=== PATIENT | male | born 1970 | race Caucasian/White ===

== ENCOUNTER 2021-09-07 21:02 | Emergency (ER) | payer MEDICARE, OTHER ==
[~2021-09-07] VITALS: Ht 167.6 cm; Wt 85.2 kg
--- NOTE | 2021-09-07 21:19 | PHYS DOC ---
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 States that about 6 out of 10 at its worst, sharp in nature associated with a cough and small amounts of mucus. Denies any fevers, rash, neck pain, dyspnea on exertion, orthopnea, PND or edema, abdominal pain, vomiting, diarrhea, dysuria, hematuria or blood in the stool. Denies any known ill contacts. States he is here visiting from [place] and drove here. Review of Systems Review of Systems Review of systems otherwise unremarkable except noted in HPI Physical Exam Physical Exam Constitutional: Well developed, well nourished, no acute distress, non-toxic appearance. [] HENT: Normocephalic, atraumatic, bilateral external ears normal, oropharynx moist, no oral exudates, nose normal. [] Eyes: conjunctiva normal, no discharge. [] Neck: Normal range of motion, no tenderness, supple, no stridor. [] Cardiovascular:Heart rate regular rhythm, no murmur. POC ultrasound with no pericardial effusion, grossly normal ejection fraction and grossly normal left and right ventricular sizes with grossly normal valve function, inferior vena cava appears slightly under distended and collapses on respirations [] Lungs & Thorax: Mild bilateral upper respiratory congestion and nasal congestion Abdomen: soft, no tenderness, no masses, no pulsatile masses. [] Skin: Warm, dry, no erythema, no rash, capillary refill about 5 seconds. [] Back: No tenderness, no CVA tenderness. [] Extremities: No tenderness, no cyanosis, no clubbing, ROM intact, no edema. [] Neurologic: Alert and oriented X 3, normal motor function, normal sensory function, no focal deficits noted. [] Psychologic: Affect normal, judgement normal, mood normal. [] EKG EKG [] Radiology/Procedures Radiology/Procedures [] Heart Score C/O Chest Pain: Yes HEART Score for Chest Pain: HEART Score for Chest Pain Response (Comments) Value History Slighlty/Non-Suspicious 0 ECG Nonspecific Repolarizatio 1 Age >45 - < 65 1 Risk Factors 1 or 2 Risk Factors 1 Troponin < Normal Limit 0 Total 3 Risk Factors: Risk Factors: DM, Current or recent (<one month) smoker, HTN, HLP, family history of CAD, obesity. Risk Scores: Risk Factors: DM, Current or recent (<one month) smoker, HTN, HLP, family history of CAD, obesity. Course & Med Decision Making Course & Med Decision Making Patient is a 51-year-old male who presents with pleuritic chest pain with cough, and nasal congestion Vital signs notable for tachypnea. Physical exam noted above. EKG with a rate of 74, QRS of 126, QTc of 440, no STEMI. Troponin not concerning x2. Low risk Wells. Dimer normal. Chest x-ray normal. POC bedside cardiac ultrasound grossly normal. Patient does appear dehydrated and given IV fluid resuscitation and pain medicine. Laboratory analysis not concerning. Discussed all findings with patient. Advised to do NSAIDs prophylactically over the next several days as he is history and physical suggestive of possible pericarditis although work-up relatively unremarkable. Advised to follow-up as soon as he can with his primary care physician. Gave return precautions to the ED. Patient grateful, verbalized understanding and agreed with plan of discharge. [] Dragon Disclaimer Dragon Disclaimer This electronic medical record was generated, in whole or in part, using a voice recognition dictation system. Departure Departure: Impression: Primary Impression: Chest pain Additional Impressions: Dehydration Viral syndrome Disposition: 01 HOME / SELF CARE / HOMELESS Condition: STABLE Referrals: VINI MAHER MD Patient Instructions: Chest Pain (Nonspecific), Dehydration, Adult, Viral Synd rena Additional Instructions: Thank you for coming into the emergency department tonight and allowing us to take care of you. Please read the attached information carefully to go over things we discussed. Please continue ibuprofen at 800 mg every 8 hours over the next couple of days and 1000 mg of Tylenol every 8 hours as well. He can add Benadryl 50 mg every 6 hours which helps with congestion, sleep and can help with nausea. Since you are here visiting, you are given a local primary care physician to contact to establish care if you go to be here for any amount of time. Please be sure to call them tomorrow to update and set up appointment for a visit for establishment of care and discussions of ED visit. Please come back with new or concerning symptoms as discussed. Problem Qualifiers NAYE CADET MD Sep 07, 2021 21:19
[2021-09-07] MEDS: ACETAMINOPHEN 500 MG TABLET PO ONE (21:31)
[2021-09-07] MEDS: ASPIRIN CHEWABLE 81 MG TABLET. PO ONE (21:31)
[2021-09-07] MEDS: MORPHINE SULFATE 4 MG/ML DISP.SYRIN. IV ONE (21:32)
[2021-09-07 21:40] LABS: BASO # 0.1 x10^3/uL (0.0-0.2); BASO % 1 % (0-3); EOS # 0.2 x10^3/uL (0.0-0.7); EOS % 2 % (0-3); HEMATOCRIT 43.1 % (39.0-53.0); HEMOGLOBIN 15.1 g/dL (13.0-17.5); LYMPH # 3.1 x10^3/uL (1.0-4.8); LYMPH % 31 % (24-48); MEAN CORPUSCULAR HEMOGLOBIN 32 pg (25-35); MEAN CORPUSCULAR HGB CONC 35 g/dL (31-37); MEAN CORPUSCULAR VOLUME 91 fL (79-100); MONO # 0.6 x10^3/uL (0.0-1.1); MONO % 6 % (0-9); NEUT # 5.8 x10^3uL (1.8-7.7); NEUT % 60 % (31-73); PLATELET COUNT 177 x10^3/uL (140-400); RED BLOOD COUNT 4.75 x10^6/uL (4.30-5.70); RED CELL DISTRIBUTION WIDTH 13.5 % (11.5-14.5); WHITE BLOOD COUNT 9.7 x10^3/uL (4.0-11.0)
--- NOTE | 2021-09-07 21:50 | RAD ---
XR CHEST 1V INDICATION: CP . COMPARISON STUDY: None. FINDINGS: Lungs: Normal lung volume. No pulmonary mass or consolidation. The tracheobronchial tree and hilar st ructures are normal. Pleura: No pleural effusion or pneumothorax. Heart and Mediastinum: The cardiomediastinal silhouette is normal. The great vessels of the thorax ar e normal. Bones and Soft Tissues: The bones and soft tissues are within normal limits. IMPRESSION: No acute cardiopulmonary process. Electronically signed by: Colton Perez MD (09/07/2021 9:48 PM) [facility]
[2021-09-07 21:51] LABS: GFR 79.1; POTASSIUM 3.5 mmol/L (3.5-5.1)
[2021-09-07 21:57] LABS: ALBUMIN 3.6 g/dL (3.4-5.0); ALBUMIN/GLOBULIN RATIO 1.3 (1.0-1.7); MAGNESIUM 1.9 mg/dL (1.8-2.4); TOTAL BILIRUBIN 0.2 mg/dL (0.2-1.0); TOTAL PROTEIN 6.3 g/dL (6.4-8.2)
[2021-09-07] MEDS: IV RINGERS SOLUTION,LACTATED 1,000 ML IV ONE (22:24)
[2021-09-07] MEDS: KETOROLAC 15 MG/ML VIAL. IVP ONE (22:24)
[2021-09-07] MEDS ORDERED: METO25TA4 PO (23:17)
[2021-09-07] MEDS ORDERED: ESCITALOPRAM OX20 MG PO (23:17)
[2021-09-07] MEDS ORDERED: LISI10TA16 PO (23:17)
[2021-09-07] MEDS: oxyCODONE/APAP 5/325 1 TAB TABLET PO ONE (23:19)
[2021-09-08 00:45] VITALS: BP 129/71
--- NOTE | 2021-09-08 20:19 | EKG ---
[address] [address] Test Date: 2021-09-07 Test Time: 21:13:20 Pat Name: FLORENTINO MCQUEEN Department: Room: Gender: M Field Ironworker: ANETA : 1970 Requested By: NAYE CADET Order Number: [id number] Reading MD: Measurements Intervals [place] Rate: 74 P: 0 IN: 118 QRS: 125 QRSD: 126 T: 38 QT: 396 QTc: 440 Interpretive Statements SINUS RHYTHM NON SPECIFIC INTRAVENTRICULAR BLOCK RVH WITH REPOLARIZATION ABNORMALITY ABNORMAL ECG RI6.01 No previous ECG available for comparison
== END 2021-09-08 00:50 | disposition home or self-care (01) ==
LOC: ER 21:02
DX: B34.9 Viral infection, unspecified (principal); E86.0 Dehydration
CPT/HCPCS: 36415; 71045; 80053; 83735; 84484; 85025; 85379; 85610; 85730; 93005; 96361; 96374; 96375; 99285; J1885; J2270; J7120

== ENCOUNTER 2021-09-24 20:11 | Inpatient (IN) | payer MEDICARE, MEDICAID ==
[~2021-09-24] VITALS: Ht 167.6 cm; Wt 86.7 kg
[~2021-09-24 20:11] MED LIST: ESCITALOPRAM OX20 MG PO; LISI10TA16 PO; METO25TA4 PO
[2021-09-24 20:57] LABS: BASO # 0.1 x10^3/uL (0.0-0.2); BASO % 1 % (0-3); EOS # 0.2 x10^3/uL (0.0-0.7); EOS % 2 % (0-3); HEMATOCRIT 40.9 % (39.0-53.0); HEMOGLOBIN 14.3 g/dL (13.0-17.5); LYMPH # 3.9 x10^3/uL (1.0-4.8); LYMPH % 42 % (24-48); MEAN CORPUSCULAR HEMOGLOBIN 32 pg (25-35); MEAN CORPUSCULAR HGB CONC 35 g/dL (31-37); MEAN CORPUSCULAR VOLUME 90 fL (79-100); MONO # 0.7 x10^3/uL (0.0-1.1); MONO % 7 % (0-9); NEUT # 4.4 x10^3uL (1.8-7.7); NEUT % 48 % (31-73); PLATELET COUNT 175 x10^3/uL (140-400); RED BLOOD COUNT 4.52 x10^6/uL (4.30-5.70); RED CELL DISTRIBUTION WIDTH 13.3 % (11.5-14.5); WHITE BLOOD COUNT 9.3 x10^3/uL (4.0-11.0)
--- NOTE | 2021-09-24 21:00 | PHYS DOC ---
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 The patient has been having intermittent headaches for couple of days. Today, he started to have periods of chest pressure that "shot up and radiated to my head." These seem to happen at random and have a moderate to severe intensity. He has shortness of breath when they occur. The feeling only lasts for a minute or 2 but he does not understand why they keep happening. The patient has had intermittent ringing in his ears and headaches but not the commendation of symptoms he has now. He has not had a stress test or cardiac cath in many years. No history of stents or cardiac bypass. The patient does have a history of pulmonary embolism with no known cause about 3 years ago. He is not currently on anticoagulants. He did have a long car ride from [place] back to [place] about a month ago. He has been taking his medications. Denies fever or chills. Review of Systems: Review of Systems: Constitutional: Denies fever or chills Eyes: Denies change in visual acuity HENT: Denies nasal congestion or sore throat Respiratory: shortness of breath Cardiovascular: Chest pain GI: Denies abdominal pain, nausea, vomiting, bloody stools or diarrhea : Denies dysuria Musculoskeletal: Denies back pain or joint pain Integument: Denies rash Neurologic: Headache. Denies focal weakness or sensory changes Endocrine: Denies polyuria or polydipsia Lymphatic: Denies swollen glands Psychiatric: Denies depression or anxiety Allergies: Allergies: Allergies Coded Allergies Type Severity Reaction Last Updated Verified Penicillins Allergy Intermediate Hives 09/07/21 Yes Physical Exam: PE: Constitutional: Well developed, well nourished, no acute distress, non-toxic appearance. [] HENT: Normocephalic, atraumatic, bilateral external ears normal, oropharynx moist, no oral exudates, nose normal. Both tympanic membranes mostly obscured by cerumen, no obvious infection. [] Eyes: PERRLA, EOMI, conjunctiva normal, no discharge. [] Neck: Normal range of motion, no tenderness, supple, no stridor. [] Cardiovascular: Heart rate 102, regular rhythm, no murmur [] Lungs & Thorax: Bilateral end expiratory wheezing at the bases [] Abdomen: Bowel sounds normal, soft, no tenderness, no masses, no pulsatile masses. [] Skin: Warm, dry, no erythema, no rash. [] Back: No tenderness, no CVA tenderness. [] Extremities: No tenderness, no cyanosis, no clubbing, ROM intact, no edema. [] Neurologic: Alert and oriented X 3, normal motor function, normal sensory function, no focal deficits noted. [] Psychologic: Affect normal, judgement normal, mood anxious. [] EKG: EKG: Sinus rhythm, rate 102, rightward axis, intraventricular block, no obvious ST elevation or depression. [] Radiology/Procedures: Radiology/Procedures: [] Impressions: Study: XR CHEST 1V Indication: Chest pain. Comparison: 09/07/2021 Findings: The cardiomediastinal silhouette and landon are within normal limits. No localized airspace opacity, pleural effusion or pneumothorax. Impression: No acute radiographic abnormality of the chest. No relevant change from the 09/07/2021 comparison. Electronically signed by: AMBER SANCHEZ MD (09/24/2021 9:09 PM) [facility] DICTATED AND SIGNED BY: AMBER SANCHEZ MD DATE: 09/24/212108 CC: ESTER MERCEDES DO; PCP,UNKNOWN ~ Exam: CT head INDICATION: Headache TECHNIQUE: Sequential axial images through the head were obtained without the administration of IV contrast. Exposure: One or more of the following in the visualized dose reduction techniques were utilized for this examination: 1. Automated exposure control 2. Adjustment of the MA and/or KV according to patient size 3. Use of iterative of reconstructive technique Comparisons: None FINDINGS: Evaluation of the intracranial structures is limited secondary to postcontrast technique. No large focal parenchymal lesion or hemorrhage is identified. There is no midline shift or sulcal effacement. No large acute vascular territory infarction is identified. Herrera-white distinction is preserved. The ventricular system is within normal limits without compression hydro cephalus. The basal cisterns are well maintained. The visualized portions of the paranasal sinuses and mastoid air cells are well- pneumatized. No acute fractures. IMPRESSION: No acute intracranial abnormality. Limitations as described above. Electronically signed by: Martha Santiago MD (09/24/2021 10:22 PM) [facility] DICTATED AND SIGNED BY: MARTHA SANTIAGO MD DATE: 09/24/212218 CC: ESTER MERCEDES DO; PCP,UNKNOWN ~ Exam: CT of chest with contrast INDICATION: Tachycardia, chest pain TECHNIQUE: Sequential axial images through the chest obtained following the administration of 75 mL of Isovue-370 IV contrast. Sagittal and coronal reformatted images were reconstructed from the axial data and reviewed. Exposure: One or more of the following in the visualized dose reduction techniques were utilized for this examination: 1. Automated exposure control 2. Adjustment of the MA and/or KV according to patient size 3. Use of iterative of reconstructive technique Comparisons: Chest x-ray same day FINDINGS: Visualized portions of the thyroid are unremarkable. No enlarged mediastinal lymph nodes are identified. Heart size is normal. No pericardial effusion. Thoracic aorta has normal course and caliber. Pulmonary artery is not enlarged. No pulmonary embolus identified within the main, lobar or segmental pulmonary arteries. Airways are patent. Mild bronchial wall thickening noted. No consolidation or pneumothorax. No suspicious lung nodules. No pleural effusion or thickening. Visualized upper abdomen is unremarkable. No suspicious osseous lesions or acute fractures. IMPRESSION: No pulmonary embolus identified within the main, lobar or segmental pulmonary arteries. Electronically signed by: Martha Santiago MD (09/24/2021 9:41 PM) [facility] DICTATED AND SIGNED BY: MARTHA SANTIAGO MD DATE: 09/24/212133 CC: ESTER MERCEDES DO; PCP,UNKNOWN ~ Heart Score: C/O Chest Pain: Yes HEART Score for Chest Pain: HEART Score for Chest Pain Response (Comments) Value History Slighlty/Non-Suspicious 0 ECG Nonspecific Repolarizatio 1 Age >45 - < 65 1 Risk Factors 1 or 2 Risk Factors 1 Troponin < Normal Limit 0 Total 3 Risk Factors: Risk Factors: DM, Current or recent (<one month) smoker, HTN, HLP, family history of CAD, obesity. Risk Scores: Score 0 - 3: 2.5% MACE over next 6 weeks - Discharge Home Score 4 - 6: 20.3% MACE over next 6 weeks - Admit for Clinical Observation Score 7 - 10: 72.7% MACE over next 6 weeks - Early Invasive Strategies Course & Med Decision Making: Course & Med Decision Making Pertinent Labs and Imaging studies reviewed. (See chart for details) The patient's labs are unremarkable. Troponin is negative. EKG is unremarkable. Chest x-ray is negative for acute findings. Given his tachycardia and history of PE I ordered a CT angiogram of the chest. It was negative for pulmonary embolus or other significant finding. Patient continued to complain of headache after getting a dose of pain medication. I ordered a head CT which was negative for acute findings. I give the patient Reglan, Toradol, and Benadryl for his headache. He has had some improvement of the chest pain, but still has intense head pressure. I will give him Dilaudid and Decadron. I discussed this with the patient and we agreed admitting him for further management would be the best course of action. I spoke with the hospitalist, Dr. Negrete and he has accepted the patient for admission. [] Dragon Disclaimer: Dragon Disclaimer: This electronic medical record was generated, in whole or in part, using a voice recognition dictation system. Departure Departure: Impression: Primary Impression: Chest pain Additional Impression: Headache Disposition: ADMITTED INPATIENT Admitting Physician: Katelin Negrtee Condition: STABLE Referrals: PCP,UNKNOWN (PCP) Patient Instructions: Chest Pain (Nonspecific), [id number], Cluster Headache, [id number] ESTER MERCEDES DO September 24, 2021 21:00
[2021-09-24 21:08] LABS: CALCIUM 8.8 mg/dL (8.5-10.1); CREATININE 1.3 mg/dL (0.7-1.3); GFR 58.4; POTASSIUM 3.6 mmol/L (3.5-5.1)
--- NOTE | 2021-09-24 21:12 | RAD ---
Study: XR CHEST 1V Indication: Chest pain. Comparison: 09/07/2021 Findings: The cardiomediastinal silhouette and landon are within normal limits. No localized airspace opacity, pl eural effusion or pneumothorax. Impression: No acute radiographic abnormality of the chest. No relevant change from the 09/07/2021 comparison. Electronically signed by: AMBER SANCHEZ MD (09/24/2021 9:09 PM) [facility]
[2021-09-24 21:15] LABS: ALBUMIN 3.5 g/dL (3.4-5.0); ALBUMIN/GLOBULIN RATIO 1.4 (1.0-1.7); TOTAL BILIRUBIN 0.2 mg/dL (0.2-1.0)
[2021-09-24] MEDS ORDERED: CONTRAST GIVEN. MC PRN (21:15)
[2021-09-24] MEDS ORDERED: ONDANSETRON PF 4 MG/2 ML VIAL. IVP ONE (21:30)
[2021-09-24] MEDS ORDERED: IOHEXOL 350 MG/ML 100 ML VIAL. IV ONE (21:30)
[2021-09-24] MEDS ORDERED: MORPHINE SULFATE 4 MG/ML DISP.SYRIN. IV ONE (21:30)
[2021-09-24] MEDS ORDERED: ASPIRIN CHEWABLE 81 MG TABLET. PO ONE (21:30)
[2021-09-24] MEDS ORDERED: IPRATRPIUM/ALBUTEROL 0.5/2.5MG 3 ML NEBU. NEB ONE (21:30)
--- NOTE | 2021-09-24 21:44 | RAD ---
Exam: CT of chest with contrast INDICATION: Tachycardia, chest pain TECHNIQUE: Sequential axial images through the chest obtained following the administration of 75 mL o f Isovue-370 IV contrast. Sagittal and coronal reformatted images were reconstructed from the axial d sachin and reviewed. Exposure: One or more of the following in the visualized dose reduction techniques were utilized for this examination: 1. Automated exposure control 2. Adjustment of the MA and/or KV according to patient size 3. Use of iterative of reconstructive technique Comparisons: Chest x-ray same day FINDINGS: Visualized portions of the thyroid are unremarkable. No enlarged mediastinal lymph nodes are identifi ed. Heart size is normal. No pericardial effusion. Thoracic aorta has normal course and caliber. Pulmonar y artery is not enlarged. No pulmonary embolus identified within the main, lobar or segmental pulmona ry arteries. Airways are patent. Mild bronchial wall thickening noted. No consolidation or pneumothorax. No suspic ious lung nodules. No pleural effusion or thickening. Visualized upper abdomen is unremarkable. No suspicious osseous lesions or acute fractures. IMPRESSION: No pulmonary embolus identified within the main, lobar or segmental pulmonary arteries. Electronically signed by: Martha Hoskins MD (09/24/2021 9:41 PM) [facility]
[2021-09-24] MEDS ORDERED: diphenhydrAMINE 50 MG/ML VIAL IVP ONE (22:00)
[2021-09-24] MEDS ORDERED: METOCLOPRAMIDE HCL 10 MG/2 ML VIAL. IVP ONE (22:00)
[2021-09-24] MEDS ORDERED: KETOROLAC 30 MG/ML VIAL. IVP ONE (22:00)
--- NOTE | 2021-09-24 22:24 | RAD ---
Exam: CT head INDICATION: Headache TECHNIQUE: Sequential axial images through the head were obtained without the administration of IV co ntrast. Exposure: One or more of the following in the visualized dose reduction techniques were utilized for this examination: 1. Automated exposure control 2. Adjustment of the MA and/or KV according to patient size 3. Use of iterative of reconstructive technique Comparisons: None FINDINGS: Evaluation of the intracranial structures is limited secondary to postcontrast technique. No large focal parenchymal lesion or hemorrhage is identified. There is no midline shift or sulcal ef facement. No large acute vascular territory infarction is identified. Herrera-white distinction is preserved. The ventricular system is within normal limits without compression hydrocephalus. The basal cisterns are well maintained. The visualized portions of the paranasal sinuses and mastoid air cells are well-pneumatized. No acute fractures. IMPRESSION: No acute intracranial abnormality. Limitations as described above. Electronically signed by: Martha Hoskins MD (09/24/2021 10:22 PM) [facility]
[2021-09-24] MEDS ORDERED: ONDANSETRON PF 4 MG/2 ML VIAL. IVP PRN (23:00)
[2021-09-24] MEDS ORDERED: HYDROmorphone PF 1 MG/ML DISP.SYRIN IV PRN (23:00)
[2021-09-24] MEDS ORDERED: HYDROmorphone PF 1 MG/ML DISP.SYRIN IVP ONE (23:30)
[2021-09-24] MEDS ORDERED: DEXAMETHASONE SOD PHOS 10 MG/ML VIAL. IV ONE (23:30)
--- NOTE | 2021-09-24 23:37 | NUR ---
The patient, FLORENTINO MCQUEEN, 50 y/o, M admitted by GEORGIA ARSHAD MD, was given written information regarding hospital policies, unit procedures and contact persons. Valuables were checked and logged. Call light in reach.
[2021-09-24 23:52] VITALS: BP 122/78
[2021-09-25] MEDS: HYDROmorphone PF 2 MG/ML VIAL IVP PRN ×5 (00:15→23:40)
--- NOTE | 2021-09-25 00:23 | EKG ---
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
[2021-09-25 06:43] VITALS: BP 133/81
[2021-09-25] MEDS ORDERED: KETOROLAC 30 MG/ML VIAL. IVP ONE (07:45)
[2021-09-25] MEDS: METOPROLOL TART IMMED RELEASE 25 MG TABLET. PO SCH ×2 (08:34→19:41)
[2021-09-25] MEDS: LISINOPRIL 10 MG TABLET PO SCH (08:35)
[2021-09-25] MEDS: MORPHINE SULFATE 4 MG/ML DISP.SYRIN. IV PRN ×2 (08:36→15:48)
[2021-09-25 11:00] VITALS: BP 139/87
--- NOTE | 2021-09-25 11:03 | NUR ---
Nursing note PT in bed, verbalized pressure in his head. Pain medication administered per doctors orders. Morning assessments done. Pain reassessed, and PT verbalized pain is much better at 8/10. PT verbalized no other needs, RN told PT doctor will be in to assess him soon. Bed low, call light within reach.
--- NOTE | 2021-09-25 11:35 | EKG ---
[address] [address] Test Date: 2021-09-25 Test Time: 08:15:56 Pat Name: FLORENTINO MCQUEEN Department: Room: 121 A Gender: M Bank Messenger: KIM : 1970 Requested By: GEORGIA ARSHAD Order Number: [id number] Reading MD: Joseph Mejia MD Measurements Intervals [place] Rate: 64 P: 23 [place]: 122 QRS: -141 QRSD: 128 T: 24 QT: 408 QTc: 421 Interpretive Statements SINUS RHYTHM RBBB Electronically Signed On 09-26-2021 8:52:27 CDT by Joseph Mejia MD
--- NOTE | 2021-09-25 13:04 | HP ---
DATE OF SERVICE: 09/25/2021 ADMIT DATE: 09/24/2021 HISTORY OF PRESENT ILLNESS: The patient is a 50-year-old male patient who presented to the Emergency Room of with a complaint of chest pain and the patient has been having intermittent headaches for a couple of days and on the day of admission, he started to have periods of chest pressure that shoots up and radiates to his head. This seems to happen at random and have a moderate to severe intensity. He has had shortness of breath when they occur, the feeling only lasts for a minute or 2 but he does not understand why they keep happening. The patient has had intermittent ringing in his ears and headaches, but not like his symptoms now. He has not had any stress test or cardiac catheterization in many years. He has no history of stents or cardiac bypass. He has a history of pulmonary embolism that was unprovoked 3 years ago. However, he is currently not on any anticoagulation. He did have a long ride from [place] back to [place] about a month ago. He stated that he has been taking his medications as prescribed. Denied any fevers, chills or rigors. The patient was extensively investigated and has had lab work, EKG as well as multiple imaging modalities. His EKG showed that he was in sinus rhythm with a heart rate of 102 with rightward axis, intraventricular block. No obvious ST elevation or depression. His chest x-ray showed that the cardiomediastinal silhouette and landon are within normal range. No localized airspace opacity, pleural effusion or pneumothorax. He also underwent a CT scan of the head without contrast, which basically showed that evaluation of the intracranial structure is limited secondary to post-contrast technique. There was no large focal parenchymal lesion or hemorrhage identified. There is no midline shift or sulcal effacement. No large acute vascular territory infarction identified, maya white distinction is preserved. The ventricular system is within normal range without compression, hydrocephalus. The basal ganglia are well maintained. The visualized portion of the paranasal sinuses and mastoid air cells are well pneumatized. No acute fracture given that he has also a history of pulmonary embolism and continued to have chest pain. He has had a CT angio of the chest, which basically showed the visualized portions of the thyroid are unremarkable. No enlarged mediastinal lymph nodes are identified. Heart size is normal. No pericardial effusion. Thoracic aorta has normal course and caliber. Pulmonary artery is not enlarged. No pulmonary emboli identified within the main lobar or segmental pulmonary arteries. Airways are patent. Mild bronchial wall thickening noted. No consolidation or pneumothorax. No suspicious lung nodules. No pleural effusion or thickening. Visualized upper abdomen is unremarkable. No suspicious osseous lesions or acute fracture and the patient has had his first set of troponin high sensitivity to be on Lasix and was admitted to do two more sets of cardiac enzyme given his persistent headache. I have also consulted Dr. Rubin to assist with his management. PAST MEDICAL HISTORY: Significant for hypertension, hyperlipidemia, nephrolithiasis, benign prostatic hypertrophy and chronic obstructive pulmonary disease. PAST SURGICAL HISTORY: Significant for left mandibular carcinoma, status post resection and reconstruction with bone taken from his right hip, ribs and left leg, according to him. He has also at the time tracheostomy and a Dobhoff catheter for nutritional support. He apparently has rejected the titanium at the time, has also cholecystectomy, appendectomy. ALLERGIES: ALLERGIC TO PENICILLIN AND LYRICA. MEDICATIONS: He is currently on the following medications: He is on metoprolol tartrate 25 mg twice a day, lisinopril 10 mg daily and escitalopram oxalate 20 mg once a day. FAMILY HISTORY: He has two sisters older, but does not really keep in touch with them. His father at age of 65 because of myocardial infarction. His mother is still alive at the age of 74 and had leukemia. SOCIAL HISTORY: He is in the process of his and actually moved here to be away from his , has 1 son. He smokes less than a pack a day, does not drink alcohol, use marijuana occasionally. He is licensed veterinary technician. REVIEW OF SYSTEMS: The patient denied any blurring of vision, cataracts, glaucoma or macular degeneration. Did complain of headache. Denied any nosebleed or stuffy nose or postnasal drip. Denied any sore throat, sore tongue, toothache, hoarseness of voice or difficulty swallowing. Denied any nausea, vomiting, diarrhea or constipation. Denied any hematemesis, melena or hematochezia. Denied any dysuria, frequency or hematuria. Did complain of chest pain and also shortness of breath that is intermittent. Denied any orthopnea or paroxysmal nocturnal dyspnea. Denied any cough, phlegm or hemoptysis. Denied any chills, rigors or fever. He did complain of intense headache that he describes as pressure. It comes on and off that lasts only about 1-2 minutes and resolved. PHYSICAL EXAMINATION: GENERAL: On arrival to the Emergency Room, the patient looked well and was clearly in no apparent respiratory distress. There is no pallor or jaundice. No lymphadenopathy, no thyromegaly, no jugular venous distention. No lower limb edema. VITAL SIGNS: His heart rate was 76, blood pressure was 133/81, temperature was 97.5, respiratory rate 20, and oxygen saturation was 95% on 2 liters of oxygen. HEAD, EYES, EARS, NOSE, AND THROAT: Showed he is normocephalic, atraumatic. NECK: Supple. HEART: Showed normal first and second heart sounds. No gallop or murmur. CHEST: Showed central trachea, equal bilateral expansion, air entry, vesicular breath sounds. No crepitation or rhonchi. ABDOMEN: Distended, soft, nontender. NEUROLOGIC: He was awake, alert, responding appropriately. All his cranial nerves intact. He moves extremities without difficulty. He has definitely no evidence of neck rigidity and Kernig sign was negative. LABORATORY DATA: His lab work on arrival showed a white cell count of 9.3, hemoglobin 14, hematocrit 40, MCV 90 and platelet count of 175,000 with normal manual differential. His chemistry showed a serum sodium 141, potassium 3.6, chloride 103, bicarbonate 26, anion gap of 12, BUN 8, creatinine 1.3. Estimated GFR was 58 mL per minute. His glucose 142, calcium was 8.8. Total bilirubin, AST, ALT, alkaline phosphatase were normal. Total protein 6, albumin 3.5. His first set of troponin I high sensitivity was 6. His coronavirus by rapid antigen testing was negative. ASSESSMENT AND PLAN: In summary, this is a 50-year-old male patient who was admitted with chest pain or chest pressure, which shoots to his head that comes intermittently so far, his EKG and cardiac enzymes at least the first set of cardiac enzyme was negative. His CT scan of the head was unremarkable and CT angio of the chest was unremarkable. My plan is to continue with all his medication and also consult the neurologist to assist with his management. HILARIO DR: Courtney TID: [id number]
[2021-09-25 15:00] VITALS: BP 149/83
--- NOTE | 2021-09-25 18:07 | NUR ---
Nursing note PT in bed, verbalized pain 10/10. Pain medication administered per doctors orders. PT assessed by the neurologist. Dr. Narayan stated muscle exercise and study will be done. Pain reassessed and PT verbalized pain at 7/10. Evening meal given to PT by RN including medication for nausea. PT verbalized no other needs. Bed low, call light within reach.
[2021-09-25 19:00] VITALS: BP 155/83
[2021-09-25 23:26] VITALS: BP 131/80
[2021-09-26] MEDS ORDERED: LORazepam 0.5 MG TABLET PO PRN (00:45)
--- NOTE | 2021-09-26 02:05 | PN ---
DATE: 09/25/2021 SUBJECTIVE: The patient has continued to complain of chest pain and a headache. The pain starts in his chest and shoots to his head, lasts only for 1-2 minutes and resolves. We have had extensive lab work including 3 sets of cardiac enzymes that ruled out myocardial infarction. His chest x-ray was unremarkable. CT scan of the head was unremarkable and CT angio of the chest showed no pulmonary embolism identified within the main lobar or segmental pulmonary embolism and the thoracic aorta has normal course and caliber. Pulmonary artery is not enlarged. However, the patient continued to complain of severe headache and therefore we did consult Dr. Rubin to assist with management. PHYSICAL EXAMINATION: GENERAL: When I saw him today afternoon, he looked well and was clearly in no apparent respiratory distress. No pallor, jaundice, cyanosis or thyromegaly. No jugular venous distention. No limb edema. VITAL SIGNS: His heart rate was 77, blood pressure was 139/87, temperature 97.6, respiratory rate was 18 and oxygen saturation was 93% on 2 liters of oxygen. HEAD, EYES, EARS, NOSE AND THROAT: Normocephalic, atraumatic. NECK: Supple. HEART: Showed normal first and second heart sounds. No gallop or murmur. CHEST: Clear to auscultation, no crepitation or rhonchi. ABDOMEN: Distended, soft, nontender. NEUROLOGIC: He is awake, alert, responding appropriately. His both pupils are pinpoint, obvious secondary to his narcotic treatment. However, he definitely has no neck rigidity. All his cranial nerves are intact. He moves extremities without difficulty. LABORATORY DATA: He had two more sets of cardiac enzymes that were both negative and ruled out acute myocardial infarction. ASSESSMENT: Chest pain, acute myocardial infarction was ruled out. His EKG showed no evidence of ST segment elevation and 3 sets of cardiac enzymes ruled out myocardial infarction, and severe headache with normal CT scan of the head. Other medical problems include hypertension and hyperlipidemia. PLAN: My plan is to continue with current pain management. Awaiting the evaluation by the neurologist. BLAISE/SONNY DR: Courtney TID: [id number]
--- NOTE | 2021-09-26 03:24 | CONS ---
REFERRING PHYSICIAN: Dr. Negrete. REASON FOR CONSULTATION: Severe headaches. HISTORY OF PRESENT ILLNESS: This is a 50-year-old right-handed male who was admitted through Emergency Room on account of chest pain and severe global headaches. The patient has been under stress and carried diagnosis of major depression and severe anxiety disorders for several years, presented to Emergency Room with sudden onset of chest pain radiating to the left shoulder and associated with shortness of breath. The patient described a pressure-like headaches in the frontal regions and associated occasionally with nausea, but denies vomiting, photophobia or phonophobia. The patient denies any recent head injuries or fall. The patient described frequent headaches at least once a week since 2016 after he underwent left jaw resection and reconstructions secondary to cancer. The patient stated this headache has been intensified in the last few days. He never had any history of migraine headache in the past. He also described ring in the ears. Initial nonenhanced head CT scan revealed no significant intracranial abnormalities. A CT angio of the chest revealed no evidence of pulmonary embolism; however, the patient has longstanding history of pulmonary embolism several years ago and he used Eliquis for 5 months only. His headaches usually responded to ibuprofen and Tylenol No. 3. Currently, he is on morphine and Dilaudid p.r.n. for severe headaches. First set of cardiac enzymes and EKG were unremarkable. The patient denies any history of coronary artery disease. However, the patient has been under extreme stress due to divorce process from the third marriage. His 3 years ago and he was from the first . Currently, the patient rated his headache severity at 6/10. He was given Dilaudid several hours ago. PAST MEDICAL HISTORY: Significant for hypertension, hyperlipidemia, COPD, benign prostatic hypertrophy, and nephrolithiasis. PAST SURGICAL HISTORY: Positive for left jaw resection with reconstructions, cholecystectomy, appendectomy. FAMILY HISTORY: Father at the age of 65 of myocardial infarction and mother is alive at the age of 74 and had leukemia. SOCIAL HISTORY: The patient is going to be . He has 1 son. He smoked less than 1 pack of cigarettes daily. He denies alcohol drinking. He used to be a comfort advisor. REVIEW OF SYSTEMS: A 10-point review of system was performed as mentioned above in history of present illness, otherwise unremarkable. CURRENT MEDICATIONS: Metoprolol 25 mg b.i.d., lisinopril 10 mg daily, morphine sulfate 4 mg every 4 hours p.r.n. for severe headaches and Dilaudid 2 mg q. 4 hours p.r.n. for severe headaches, Zofran 4 mg IV p.r.n. for nausea. Since admission, the patient has been given Toradol 30 mg IV p.r.n., albuterol inhaler. ALLERGIES: PENICILLIN. PHYSICAL EXAMINATION: GENERAL: Well-developed, well-nourished male in no acute distress. He weighs 190.8 kilos. VITAL SIGNS: Blood pressure 139/87, respiratory rate 18, pulse 77 and regular, temperature 97.6, oxygen saturation is 93% on room air. HEENT: Normocephalic, atraumatic. otherwise unremarkable. NECK: Supple, negative for carotid bruit, lymphadenopathy or thyromegaly. Kernig sign is negative. LUNGS: Clear to A and P. CARDIOVASCULAR: Regular rate and rhythm, normal S1, S2. There is no S3, S4, or murmur. ABDOMEN: Soft. Bowel sounds positive. EXTREMITIES: Negative for cyanosis, clubbing or edema. NEUROLOGIC: Mental status: The patient is alert and oriented x 3. The speech is fluent. There is no language dysfunction. The patient denies hallucination or delusion. Cranial nerves: Visual acuna are full. The pupils are reactive to light and accommodation. The extraocular movements are intact. There is no nystagmus. There is no facial motor or sensory deficits. Hearing is diminished on the left side, probably secondary to previous jaw resection. The palate is elevated symmetrically. Sternocleidomastoid muscles are powerful bilaterally. The patient shrugs his shoulders symmetrically, protrudes his tongue in the midline without fasciculation or atrophy. Motor exam: No focal muscle bulk wasting. The tone is normal. The strength is 5/5 throughout except for weakness of the left knee flexion. Sensory examination revealed normal pinprick, light touch, vibratory and position senses. Deep tendon reflexes were asymmetric and active with absent Achilles responses bilaterally. Gait: The stance is steady, but Romberg stance is positive. LABORATORY DATA: CBC revealed white blood cells of 9.3 thousand, hemoglobin 14.3, hematocrit 40.9, platelet count 175,000. Chemistry revealed sodium 141, potassium 3.6, chloride 103, CO2 of 26, BUN 8, creatinine 1.3, glucose 142, calcium 8.8. Liver enzymes are normal. Troponin I high sensitivity is 6. DIAGNOSTIC IMPRESSION: A head CT scan and CT angio as described above in the history of present illness. Chest x-ray revealed no acute cardiopulmonary process. SEROLOGY: SARS-CoV-2 antigen rapid is negative. IMPRESSION: 1. Severe and recurrent tension headaches, probably multifactorial including underlying chronic major depression and severe anxiety disorder along with distress. 2. Multiple medical problems include hypertension, hyperlipidemia, chronic obstructive pulmonary disease, smoking and chronic lower back pain. RECOMMENDATIONS: 1. Continue with current management initiated by Dr. Negrete. 2. Nonsteroidal anti-inflammatory drugs for a short period along with analgesics and muscle relaxant and muscle relaxant may alleviate the symptoms. 3. Treat the underlying major depression and severe anxiety disorders. 4. Follow up in Neurology Clinic for possible EMG/NCS of the upper and lower extremities to rule out cervical or lumbosacral radiculopathy. GENOVEVA/EKT/UPE DR: Eve TID: [id number]
[2021-09-26] MEDS: HYDROmorphone PF 2 MG/ML VIAL IVP PRN ×2 (04:52→11:03)
[2021-09-26 05:49] VITALS: BP 144/82
[2021-09-26] MEDS: MORPHINE SULFATE 4 MG/ML DISP.SYRIN. IV PRN (09:10)
[2021-09-26] MEDS: LISINOPRIL 10 MG TABLET PO SCH (09:12)
[2021-09-26] MEDS: METOPROLOL TART IMMED RELEASE 25 MG TABLET. PO SCH (09:13)
[2021-09-26 10:19] VITALS: BP 132/75
[2021-09-26 10:53] VITALS: BP 149/88
[2021-09-26] MEDS ORDERED: KETOROLAC 30 MG/ML VIAL. IVP PRN (12:30)
[2021-09-26 12:42] LABS: HEMATOCRIT 43.2 % (39.0-53.0); HEMOGLOBIN 14.7 g/dL (13.0-17.5); RED BLOOD COUNT 4.71 x10^6/uL (4.30-5.70); RED CELL DISTRIBUTION WIDTH 13.2 % (11.5-14.5); WHITE BLOOD COUNT 11.3 x10^3/uL (4.0-11.0)
[2021-09-26 12:51] LABS: ANION GAP 7 (6-14); BLOOD UREA NITROGEN 14 mg/dL (8-26); BUN/CREATININE RATIO 16 (6-20); CALCIUM 8.8 mg/dL (8.5-10.1); CARBON DIOXIDE 31 mmol/L (21-32); CHLORIDE 101 mmol/L (98-107); CREATININE 0.9 mg/dL (0.7-1.3); GFR 89.3; GLUCOSE 111 mg/dL (70-99); POTASSIUM 3.6 mmol/L (3.5-5.1); SODIUM 139 mmol/L (136-145)
[2021-09-26 12:56] LABS: ALBUMIN 3.3 g/dL (3.4-5.0); ALBUMIN/GLOBULIN RATIO 1.1 (1.0-1.7); ALK PHOS 64 U/L (46-116); ALT (SGPT) 36 U/L (16-63); AST (SGOT) 19 U/L (15-37); TOTAL BILIRUBIN 0.2 mg/dL (0.2-1.0); TOTAL PROTEIN 6.4 g/dL (6.4-8.2)
[2021-09-26 12:58] LABS: C REACTIVE PROTEIN < 0.5 mg/L (0-3.3)
--- NOTE | 2021-09-26 14:44 | NUR ---
PATIENT IS DISCHARGED HOME, DISCHARGE INSTRUCTION AND FOLLOW UP APPOINTMENT REVIEWED, PATIENT VERBALIZED UNDERSTANDING. PATIENT LEFT UNIT VIA AMBULATION ACCOMP BY STAFF. PATIENT IS HAVING A RIDE TO ED VIA HOSPITAL SECURITY, PATIENT HAS HIS VEHICLE NEAR ED ON A PARKING LOT.
--- NOTE | 2021-09-26 19:13 | EKG ---
[address] [address] Test Date: 2021-09-26 Test Time: 09:28:45 Pat Name: FLORENTINO MCQUEEN Department: Room: 121 A Gender: M Stroke Program Coordinator: : 1970 Requested By: GEORGIA ARSHAD Order Number: [id number] Reading MD: Jayro Bustillos Measurements Intervals [place] Rate: 69 P: RI: QRS: 147 QRSD: 128 T: 24 QT: 416 QTc: 447 Interpretive Statements SINUS RHYTHM RIGHT BUNDLE BRANCH BLOCK Electronically Signed On 09-28-2021 17:18:47 CDT by Jayro Bustillos
--- NOTE | 2021-09-27 00:59 | PN ---
DATE: 09/26/2021 SUBJECTIVE: The patient complains of severe chest pain radiating to the left side of the head along with shortness of breath. He has been on morphine and Dilaudid for headaches and chest pain as well. His cardiac enzymes are unremarkable. Nonenhanced head CT scan and a CT angio of the chest revealed no significant abnormalities. The patient has had this type of headaches for several years after he underwent left jaw resection followed by multiple constructive surgeries. The patient has been under extreme stress, depressions and anxiety. He has been going through divorce process currently. OBJECTIVE: GENERAL: Well-developed, well-nourished male in no acute distress. VITAL SIGNS: Blood pressure 144/82, respiratory rate 20, pulse is 74, temperature 97.6, oxygen saturation is 91% on 2 liters per nasal cannula. HEENT: Normocephalic, atraumatic. Otherwise unremarkable. NECK: Supple, negative for carotid bruit, lymphadenopathy or thyromegaly. LUNGS: With diminished breath sounds and scattered wheezing. CARDIOVASCULAR: Regular rate and rhythm, normal S1, S2. There is no S3, S4 or murmur. ABDOMEN: Soft. Bowel sounds positive. EXTREMITIES: Negative for cyanosis, clubbing or edema. NEUROLOGIC: Mental Status: The patient is alert and oriented x 3. Speech is clear. There is no language dysfunction. Cranial nerves are intact. No focal motor or sensory deficits. Deep tendon reflexes were symmetric with absent Achilles responses. Gait: The stance is steady. IMPRESSION: 1. Severe tension headache described as a pressure-like headaches are probably multifactorial including severe depressions, anxiety disorders and recent stressors. 2. Multiple medical problems include hypertension, chronic obstructive pulmonary disease, benign prostate hypertrophy and nephrolithiasis. RECOMMENDATIONS: 1. Continue with current management initiated by Dr. Negrete. 2. Follow up in neurologic clinic as an outpatient to rule out cervical or lumbosacral radiculopathy. GENOVEVA/SUKUMAR DR: Eve TID: [id number]
--- NOTE | 2021-09-27 02:49 | PN ---
DATE: 09/26/2021 SUBJECTIVE: The patient is resting, slightly propped up in bed, eating his lunch comfortably. He continued to have complaint of headache and pressure start in his chest and goes to his brain that lasts for a few seconds and stopped. So far, everything that we did including an EKG and 3 sets of cardiac enzyme and CT scan of the head, CT angio of the chest are all within normal range. His white cell count is normal at 9.3. His chemistry is normal. We did his coronavirus by rapid antigen testing and by PCR report negative. PHYSICAL EXAMINATION: GENERAL: When I examined him this afternoon, he looked well and was clearly in no apparent respiratory distress. No pallor, jaundice, cyanosis or thyromegaly. No jugular venous distention. No lower limb edema. VITAL SIGNS: His heart rate was 61, blood pressure is 149/88, temperature 97.6, respiratory rate was 18 and oxygen saturation was 98% on 2 liters oxygen. HEAD, EYES, EARS, NOSE, AND THROAT: Normocephalic, atraumatic. NECK: Supple. HEART: Showed normal first and second heart sounds. No gallop or murmur. CHEST: Clear to auscultation, no crepitation or rhonchi. ABDOMEN: Distended, soft, nontender. NEUROLOGIC: He is awake, alert, responding appropriately. All cranial nerves intact. He moves all his extremities without difficulty. He has definitely no evidence of a neck rigidity and Kernig sign was negative. His intake was 350, output was 600. LABORATORY DATA: Today's labs are still pending at the time of this dictation. ASSESSMENT AND PLAN: 1. Chest pain, acute myocardial infarction ruled out. His EKG showed no evidence of ST segment elevation, 3 sets of cardiac enzymes ruled out myocardial infarction. 2. Severe headache with normal CT scan of the head. His CT angio of the chest, no evidence of any pneumothorax, pneumonia, pleural effusion, pericardial effusion or aortic dissection. 3. Other medical problems include: A. Hypertension. B. Hyperlipidemia. PLAN: My plan is to repeat all his labs again today including sed rate and CRP and I have added Toradol, discontinued morphine and he is also now on Ativan 0.5 mg and once his symptoms subsided, he will be discharged to follow up with Dr. Rubin as an outpatient. DEREK/HERNANDEZ DR: Courtney TID: [id number]
== END 2021-09-26 14:45 | disposition home or self-care (01) | DRG 103 ==
LOC: ER 20:11 → ER HOLD 22:56 → 1 SOUTH 23:12
PROVIDERS: ADMIT Internal Medicine; ATTEND Internal Medicine
DX: G44.209 Tension-type headache, unspecified, not intractable (principal); R07.89 Other chest pain; Z88.0 Allergy status to penicillin; Z20.822 Contact with and (suspected) exposure to COVID-19; E78.5 Hyperlipidemia, unspecified; F17.210 Nicotine dependence, cigarettes, uncomplicated; F32.9 Major depressive disorder, single episode, unspecified; F41.9 Anxiety disorder, unspecified; G89.29 Other chronic pain; I10 Essential (primary) hypertension; I45.4 Nonspecific intraventricular block; J44.9 Chronic obstructive pulmonary disease, unspecified; N20.0 Calculus of kidney; N40.0 Benign prostatic hyperplasia without lower urinary tract symptoms; Z63.5 Disruption of family by separation and divorce; Z80.6 Family history of leukemia; Z82.49 Family history of ischemic heart disease and other diseases of the circulatory system; Z86.711 Personal history of pulmonary embolism; Z87.442 Personal history of urinary calculi
CPT/HCPCS: 36415; 70450; 71045; 71275; 80053; 84484; 85025; 85027; 85651; 86140; 87426; 93005; 94640; 96374; 96375; J1100; J1170; J1200; J1885; J2270; J2405; J2765; Q9967; U0003; 99285-25

== ENCOUNTER 2021-10-03 10:43 | Emergency (ER) | payer MEDICARE, MEDICAID ==
[~2021-10-03] VITALS: Ht 167.6 cm; Wt 86.7 kg
--- NOTE | 2021-10-03 11:13 | PHYS DOC ---
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 He has been seen a couple times in the emergency room and admitted to the hospital with headache and chest pain. Today he just has the headache which feels like a central pressure between his ears. This is also my seeing the patient suicidal. He states he been thinking about suicide all day. His plan would be to hang himself with changes that he uses for his truck. Patient denies fever or chills. (ESTER MERCEDES DO) Review of Systems: Review of Systems: Constitutional: Denies fever or chills Eyes: Denies change in visual acuity HENT: Denies nasal congestion or sore throat Respiratory: Denies cough or shortness of breath Cardiovascular: Denies chest pain or edema GI: Denies abdominal pain, nausea, vomiting, bloody stools or diarrhea : Denies dysuria Musculoskeletal: Denies back pain or joint pain Integument: Denies rash Neurologic: Headache. Denies focal weakness or sensory changes Endocrine: Denies polyuria or polydipsia Lymphatic: Denies swollen glands Psychiatric: Depression, suicidal ideation (ESTER MERCEDES DO) Allergies: Allergies: Allergies Coded Allergies Type Severity Reaction Last Updated Verified Penicillins Allergy Intermediate Hives 09/07/21 Yes (ESTER MERCEDES DO) Physical Exam: PE: Constitutional: Well developed, well nourished, no acute distress, non-toxic appearance. [] HENT: Normocephalic, atraumatic, bilateral external ears normal, oropharynx moist, no oral exudates, nose normal. [] Eyes: PERRLA, EOMI, conjunctiva normal, no discharge. [] Neck: Normal range of motion, no tenderness, supple, no stridor. [] Cardiovascular: Heart rate regular rhythm, no murmur [] Lungs & Thorax: Bilateral breath sounds clear to auscultation [] Abdomen: Bowel sounds normal, soft, no tenderness, no masses, no pulsatile masses. [] Skin: Warm, dry, no erythema, no rash. [] Back: No tenderness, no CVA tenderness. [] Extremities: No tenderness, no cyanosis, no clubbing, ROM intact, no edema. [] Neurologic: Alert and oriented X 3, normal motor function, normal sensory function, no focal deficits noted. [] Psychologic: Affect normal, judgement normal, mood depressed. [] (ESTER MERCEDES DO) Current Patient Data: Vital Signs: Vital Signs Date Time Temp Pulse Resp B/P (MAP) Pulse Ox O2 Delivery O2 Flow Rate FiO2 10/03/21 10:51 98.0 91 18 140/115 (123) 99 Room Air (ESTER MERCEDES DO) EKG: EKG: [] (ESTER MERCEDES DO) Radiology/Procedures: Radiology/Procedures: [] (ESTER MERCEDES DO) Heart Score: C/O Chest Pain: N/A Risk Factors: Risk Factors: DM, Current or recent (<one month) smoker, HTN, HLP, family history of CAD, obesity. Risk Scores: Score 0 - 3: 2.5% MACE over next 6 weeks - Discharge Home Score 4 - 6: 20.3% MACE over next 6 weeks - Admit for Clinical Observation Score 7 - 10: 72.7% MACE over next 6 weeks - Early Invasive Strategies (ESTER MERCEDES DO) C/O Chest Pain: No (TK HENDRICKS MD) Course & Med Decision Making: Course & Med Decision Making Pertinent Labs and Imaging studies reviewed. (See chart for details) The patient complains of headache, but states today he is feeling suicidal. He states that he has been thinking about it for several days and did not tell me a specific plan. We told the patient we will try to treat his headache in the emergency room and have him evaluated by behavioral. He is in agreement with this plan. The patient's labs are unremarkable. His urine drug screen is posi tive for marijuana and methamphetamines. He admits to marijuana use. The behavioral health team has evaluated the patient and they will attempt to have him placed in a psychiatric facility. I have given him 10 mg of Zyprexa p.o. for his uneasiness and discomfort. Patient signed out to night time babysitter at 1800. [] (ESTER MERCEDES DO) Course & Med Decision Making Accepted patient care shift change. Pending acceptance to a psych facility for suicidal ideation. Has been medically cleared. Excepted to [facility] by Dr. Brian (TK HENDRICKS MD) Dragon Disclaimer: Dragon Disclaimer: This electronic medical record was generated, in whole or in part, using a voice recognition dictation system. (ESTER MERCEDES DO) Departure Departure: Impression: Primary Impression: Suicidal ideation Additional Impressions: Methamphetamine use Marijuana use Dis[facility] Condition: STABLE Referrals: PCP,UNKNOWN (PCP) ESTER MERCEDES DO October 03, 2021 11:13 TK HENDRICKS MD October 03, 2021 21:00
[2021-10-03] MEDS ORDERED: KETOROLAC 30 MG/ML VIAL. IVP ONE (11:15)
[2021-10-03] MEDS ORDERED: METOCLOPRAMIDE HCL 10 MG/2 ML VIAL. IVP ONE (11:15)
[2021-10-03] MEDS ORDERED: IV NORMAL SALINE 1,000ML 1,000 ML IV ONE (11:15)
[2021-10-03] MEDS ORDERED: diphenhydrAMINE 50 MG/ML VIAL IVP ONE (11:15)
[2021-10-03 12:04] LABS: BASO # 0.1 x10^3/uL (0.0-0.2); BASO % 1 % (0-3); EOS # 0.1 x10^3/uL (0.0-0.7); EOS % 1 % (0-3); HEMATOCRIT 45.2 % (39.0-53.0); HEMOGLOBIN 15.5 g/dL (13.0-17.5); LYMPH # 2.4 x10^3/uL (1.0-4.8); LYMPH % 32 % (24-48); MEAN CORPUSCULAR HEMOGLOBIN 32 pg (25-35); MEAN CORPUSCULAR HGB CONC 34 g/dL (31-37); MEAN CORPUSCULAR VOLUME 92 fL (79-100); MONO # 0.7 x10^3/uL (0.0-1.1); MONO % 9 % (0-9); NEUT # 4.4 x10^3uL (1.8-7.7); NEUT % 57 % (31-73); PLATELET COUNT 206 x10^3/uL (140-400); RED BLOOD COUNT 4.91 x10^6/uL (4.30-5.70); RED CELL DISTRIBUTION WIDTH 13.6 % (11.5-14.5); WHITE BLOOD COUNT 7.7 x10^3/uL (4.0-11.0)
[2021-10-03 12:23] LABS: CALCIUM 9.2 mg/dL (8.5-10.1); CREATININE 1.1 mg/dL (0.7-1.3); GFR 70.9
[2021-10-03 12:31] LABS: ALBUMIN 3.7 g/dL (3.4-5.0); ALBUMIN/GLOBULIN RATIO 1.2 (1.0-1.7); TOTAL BILIRUBIN 0.3 mg/dL (0.2-1.0); TOTAL PROTEIN 6.9 g/dL (6.4-8.2)
[2021-10-03 13:10] LABS: BARBITURATES NEG (NEG); BENZODIAZEPINES NEG (NEG); CANNABINOIDS POS (NEG); COCAINE NEG (NEG); METHADONE NEG (NEG); OPIATES NEG (NEG); PHENCYCLIDINE NEG (NEG)
[2021-10-03 13:14] LABS: AMPHETAMINE/METHAMPHETAMINE POS (NEG)
[2021-10-03 13:32] LABS: BACTERIA,URINE 0 /HPF (0-FEW); CLARITY,URINE CLEAR; COLOR,URINE YELLOW; GLUCOSE,URINE NEG (NEG); NITRITE,URINE NEG (NEG); RBC,URINE OCC /HPF (0-2); SQUAMOUS EPITHELIAL CELL,UR OCC /LPF; UROBILINOGEN,URINE 0.2 mg/dL (0.2 mg/dL); WBC,URINE OCC /HPF (0-4)
[2021-10-03 20:57] VITALS: BP 113/68
== END 2021-10-03 22:47 ==
LOC: ER 10:43
DX: R45.851 Suicidal ideations (principal); F15.10 Other stimulant abuse, uncomplicated; F12.10 Cannabis abuse, uncomplicated; Z20.822 Contact with and (suspected) exposure to COVID-19; Z90.89 Acquired absence of other organs
CPT/HCPCS: 36415; 80053; 80307; 81001; 85025; 87426; 96361; 96374; 96375; 99285; C9803; J1200; J1885; J7030; U0003